=== PATIENT | female | born 1975 | race African-American/Black ===

== ENCOUNTER 2016-04-17 01:49 | Emergency (ER) | payer MEDICAID ==
[2016-04-17] MEDS ORDERED: ASPIRIN 81 MG TABLET, CHEWABLE PO ONE (04:20)
--- NOTE | 2016-04-17 04:22 | ER Document Report ---
ED General - General Chief Complaint: Headache Stated Complaint: HEADACHE Time seen by provider: 04:20 Notes: Patient is a 40-year-old female that comes emergency department with 2 complaints. She states that her first complaint was a headache which felt like a stabbing behind her left eye, however she states that after she waited and then got to the room her headache resolved. She states her other complaint is that she feels a squeezing pain all the way from her throat down into the top of her stomach which started at about 7 PM after she had finished dinner. She denies nausea or vomiting, she states she took one 81 mg baby aspirin prior to arrival and this did not help, she denies radiation to her back, she denies any shortness of breath. Past medical history of hypertension and "prediabetes", denies any cardiovascular history, denies family history of cardiovascular history. She denies smoking. TRAVEL OUTSIDE OF THE [place] IN LAST 30 DAYS: No - Related Data Allergies/Adverse Reactions: No Known Drug Allergies Allergy (Unknown, Verified 09/19/12 14:11) Past Medical History - General Information source: Patient - Social History Smoking Status: Never Smoker Chew tobacco use (# tins/day): No Frequency of alcohol use: None Drug Abuse: None Lives with: Family Family History: Reviewed & Not Pertinent Patient has suicidal ideation: No Patient has homicidal ideation: No - Past Medical History Cardiac Medical History: Reports: Hx Hypertension Denies: Hx Coronary Artery Disease, Hx Heart Attack, Hx Heart Murmur Pulmonary Medical History: Denies: Hx Asthma, Hx Bronchitis, Hx COPD, Hx Pneumonia Neurological Medical History: Denies: Hx Cerebrovascular Accident, Hx Seizures Renal/ Medical History: Reports: Hx Kidney Stones. Denies: Hx Peritoneal Dialysis GI Medical History: Reports: Hx Gastroesophageal Reflux Disease. Denies: Hx Hiatal Hernia, Hx Ulcer Musculoskeltal Medical History: Denies Hx Arthritis Psychiatric Medical History: Comment Only: Hx Anxiety - SOMETIMES Surgical Hx: Negative - Immunizations Hx Diphtheria, Pertussis, Tetanus Vaccination: Yes - 2012 Review of Systems - Review of Systems Constitutional: No symptoms reported EENT: No symptoms reported Cardiovascular: See HPI Respiratory: No symptoms reported Gastrointestinal: See HPI Genitourinary: No symptoms reported Female Genitourinary: No symptoms reported Musculoskeletal: No symptoms reported Skin: No symptoms reported Hematologic/Lymphatic: No symptoms reported Neurological/Psychological: See HPI Physical Exam - Vital signs Vitals: Temp Pulse Resp BP Pulse Ox 97.5 F 81 18 139/80 H 99 04/17/16 01:54 04/17/16 01:54 04/17/16 01:54 04/17/16 01:54 04/17/16 01:54 Interpretation: Normal - General General appearance: Appears well, Alert In distress: None - HEENT Head: Normocephalic, Atraumatic Eyes: Normal Conjunctiva: Normal Eyelashes: Normal Pupils: PERRL Mucous membranes: Normal Pharynx: Normal Neck: Normal - Respiratory Respiratory status: No respiratory distress Chest status: Nontender Breath sounds: Normal Chest palpation: Normal - Cardiovascular Rhythm: Regular Heart sounds: Normal auscultation Murmur: No - Abdominal Inspection: Normal Distension: No distension Bowel sounds: Normal Tenderness: Tender - Very mild epigastric tenderness, otherwise very soft benign abdomen Organomegaly: No organomegaly - Back Back: Normal, Nontender - Extremities General upper extremity: Normal inspection, Nontender, Normal color, Normal ROM , Normal temperature General lower extremity: Normal inspection, Nontender, Normal color, Normal ROM , Normal temperature, Normal weight bearing. No: Brock's sign - Neurological Neuro grossly intact: Yes Cognition: Normal Orientation: AAOx4 [place] Coma Scale Eye Opening: Spontaneous [place] Coma Scale Verbal: Oriented [place] Coma Scale Motor: Obeys Commands [place] Coma Scale Total: 15 Speech: Normal Motor strength normal: LUE, RUE, LLE, RLE Sensory: Normal - Psychological Associated symptoms: Normal affect, Normal mood - Skin Skin Temperature: Warm Skin Moisture: Dry Skin Color: Normal Course - Re-evaluation Re-evalutation: Patient well appearing on exam, states she is uncomfortable and points to the discomfort all the way from her throat down to her epigastric area, very mild epigastric tenderness on examination. Patient appears continually uncomfortable on reexamination after aspirin per chest pain protocol, chest x- ray unremarkable, EKG unremarkable, troponins negative despite being 8 hours after symptom onset. Mild leukocytosis, nonspecific with unremarkable examination. Patient given GI cocktail, after this patient was reevaluated and patient states she feels great, symptoms completely resolved. Based on workup, symptoms , patient will be placed on Prilosec, advised treatment for this at home, primary care follow-up, and return precautions were discussed in detail. Patient states understanding and agreement. - Vital Signs Vital signs: Temp Pulse Resp BP Pulse Ox 97.5 F 59 L 18 127/79 H 98 04/17/16 01:55 04/17/16 06:40 04/17/16 01:55 04/17/16 06:40 04/17/16 06:40 - Laboratory Result Diagrams: 04/17/16 04:45 04/17/16 04:45 Laboratory results interpreted by me: 04/17/16 04:45 WBC 12.7 H Hgb 10.7 L Hct 34.1 L MCV 75 L MCH 23.5 L MCHC 31.4 L RDW 15.6 H Absolute Neutrophils 8.7 H Discharge - Discharge Clinical Impression: Chest pain Qualifiers: Chest pain type: unspecified Qualified Code(s): R07.9 - Chest pain, unspecified Abdominal pain Qualifiers: Abdominal location: unspecified location Qualified Code(s): R10.9 - Unspecified abdominal pain Condition: Stable Disposition: HOME, SELF-CARE Additional Instructions: Your examination, evaluation, and workup is most consistent with a gastrointestinal source of your symptoms. Take medications as prescribed, take Tums or Rolaids in addition if needed, avoid caffeine, smoking, alcohol, NSAIDs such as ibuprofen, Aleve, aspirin. Follow-up with primary care for additional management. Return to emergency department for any concerning or worsening symptoms including vomiting, black stools, severe abdominal pain, or any other concerning symptoms. Prescriptions: Omeprazole 40 mg PO DAILY #30 capsule.dr Forms: Return to Work Referrals: ERLIN NELSON MD [Primary Care Provider] - Follow up in 3-5 days
[2016-04-17 04:54] LABS: ABSOLUTE BASOPHILS # (AUTO) 0.1 10^3/uL (0.0-0.2); ABSOLUTE EOSINOPHILS # (AUTO) 0.4 10^3/uL (0.0-0.6); ABSOLUTE LYMPHOCYTES (AUTO) 2.8 10^3/uL (0.5-4.7); ABSOLUTE MONOCYTES (AUTO) 0.6 10^3/uL (0.1-1.4); ABSOLUTE NEUT (AUTO) 8.7 10^3/uL (1.7-8.2); BASOPHILS % (AUTO) 0.6 % (0-2); EOSINOPHILS % (AUTO) 3.3 % (0-6); HEMATOCRIT 34.1 % (36.0-47.0); HEMOGLOBIN 10.7 g/dL (12.0-15.5); LYMPHOCYTES % (AUTO) 22.3 % (13-45); MEAN CORPUSCULAR HEMOGLOBIN 23.5 pg (27.0-33.4); MEAN CORPUSCULAR HGB CONC 31.4 g/dL (32.0-36.0); MEAN CORPUSCULAR VOLUME 75 fl (80-97); RED BLOOD COUNT 4.56 10^6/uL (3.72-5.28); RED CELL DISTRIBUTION WIDTH 15.6 % (11.5-14.0); SEGMENTED NEUTROPHILS % (AUTO) 68.8 % (42-78); WHITE BLOOD COUNT 12.7 10^3/uL (4.0-10.5)
[2016-04-17 05:21] LABS: ALANINE AMINOTRANSFERASE 27 U/L (9-52); ALBUMIN 3.7 g/dL (3.5-5.0); ALKALINE PHOSPHATASE 75 U/L (38-126); ANION GAP 12 (5-19); ASPARTATE AMINO TRANSFERASE 19 U/L (14-36); BILIRUBIN,TOTAL 0.3 mg/dL (0.2-1.3); BLOOD UREA NITROGEN 17 mg/dL (7-20); CALCIUM 9.4 mg/dL (8.4-10.2); CARBON DIOXIDE 25 mmol/L (22-30); CHLORIDE 101 mmol/L (98-107); CREATINE KINASE 98 U/L (30-135); CREATININE RESULT 0.81 mg/dL (0.52-1.25); GLUCOSE 101 mg/dL (75-110); POTASSIUM 3.9 mmol/L (3.6-5.0); SODIUM 137.6 mmol/L (137-145); TOTAL PROTEIN 6.5 g/dL (6.3-8.2)
[2016-04-17 05:23] LABS: CREATINE KINASE MB 0.23 ng/mL (<4.55)
[2016-04-17 05:24] LABS: TROPONIN I < 0.012 ng/mL
[2016-04-17] MEDS ORDERED: METOCLOPRAMIDE HCL ORAL SOLN 10 MG/10 ML UDCUP PO ONE (05:37)
[2016-04-17] MEDS ORDERED: LIDOCAINE 2% VISCOUS SOLN 20 ML UDCUP PO ONE (05:37)
[2016-04-17] MEDS ORDERED: MAG HYDROX/AL HYDROX/SIMETH SUSP 30 ML UDCUP PO ONE (05:37)
[2016-04-17 06:55] VITALS: BP 127/79
--- NOTE | 2016-04-17 20:04 | EKG REPORT ---
SEVERITY:- NORMAL ECG - SINUS RHYTHM : Confirmed by: Timmy Jimenez 17-Apr-2016 20:03:28
== END 2016-04-17 07:21 | disposition home or self-care (01) ==
LOC: ER 01:49
DX: R07.9 Chest pain, unspecified (principal); K21.9 Gastro-esophageal reflux disease without esophagitis; R10.10 Upper abdominal pain, unspecified; R10.816 Epigastric abdominal tenderness; I10 Essential (primary) hypertension
CPT/HCPCS: 93005; 99285; 36415; 82553; 82550; 84703; 85025; 80053; 84484; 71010; 93010; J3490 ×3

== ENCOUNTER 2016-09-01 01:16 | Emergency (ER) | payer MEDICAID ==
--- NOTE | 2016-09-01 02:46 | ER Document Report ---
ED General - General Chief Complaint: Ankle Pain Stated Complaint: ANKLE PAIN Time Seen by Provider: 09/01/16 01:57 Mode of Arrival: Ambulatory Information source: Patient Notes: 41-year-old female presents with complaints of ankle pain of 3 week duration. Patient notes she twisted it has been able to ambulate improved over the past couple weeks but worsening todayl patient notes pain is worse in the ankle itself TRAVEL OUTSIDE OF THE [place] IN LAST 30 DAYS: No - HPI Onset: Other Onset/Duration: Persistent Quality of pain: Achy Severity: Mild Pain Level: 1 Associated symptoms: Body/muscle aches Exacerbated by: Movement, Walking Relieved by: Denies Similar symptoms previously: No Recently seen / treated by doctor: No - Related Data Allergies/Adverse Reactions: No Known Drug Allergies Allergy (Unknown, Verified 09/01/16 01:22) Home Medications: Current Home Medications Metformin HCl 1 tab PO QHS 09/01/16 [History] Metformin HCl [Glucophage] 1 tab PO QAM 09/01/16 [History] Triamterene/Hydrochlorothiazid [Triamterene-Hctz 37.5-25 mg Cp] 1 each PO QAM [History] Past Medical History - Social History Smoking Status: Current Every Day Smoker Cigarette use (# per day): Yes Chew tobacco use (# tins/day): No Smoking Education Provided: No Frequency of alcohol use: None Drug Abuse: None Family History: Reviewed & Not Pertinent - Past Medical History Cardiac Medical History: Reports: Hx Hypertension Denies: Hx Coronary Artery Disease, Hx Heart Attack, Hx Heart Murmur Pulmonary Medical History: Denies: Hx Asthma, Hx Bronchitis, Hx COPD, Hx Pneumonia Neurological Medical History: Denies: Hx Cerebrovascular Accident, Hx Seizures Renal/ Medical History: Reports: Hx Kidney Stones. Denies: Hx Peritoneal Dialysis GI Medical History: Reports: Hx Gastroesophageal Reflux Disease. Denies: Hx Hiatal Hernia, Hx Ulcer Musculoskeltal Medical History: Denies Hx Arthritis Psychiatric Medical History: Comment Only: Hx Anxiety - SOMETIMES - Immunizations Hx Diphtheria, Pertussis, Tetanus Vaccination: Yes - 2012 Review of Systems - Review of Systems Notes: REVIEW OF SYSTEMS: CONSTITUTIONAL : Denies fever, chills, or sweats. Denies recent illness. EENT: Denies eye, ear, throat, or mouth pain or symptoms. Denies nasal or sinus congestion or discharge. Denies throat, tongue, or mouth swelling or difficulty swallowing. CARDIOVASCULAR: Denies chest pain. Denies palpitations or racing or irregular heart beat. Denies ankle edema. RESPIRATORY: Denies cough, cold, or chest congestion. Denies shortness of breath, difficulty breathing, or wheezing. GASTROINTESTINAL: Denies abdominal pain or distention. Denies nausea, vomiting , or diarrhea. Denies blood in vomitus, stools, or per rectum. Denies black, tarry stools. Denies constipation. GENITOURINARY: Denies difficulty urinating, painful urination, burning, frequency, blood in urine, or discharge. FEMALE GENITOURINARY: Denies vaginal bleeding, heavy or abnormal periods, irregular periods. Denies vaginal discharge or odor. MUSCULOSKELETAL: admits to [facility] pain SKIN: Denies rash, lesions or sores. HEMATOLOGIC : Denies easy bruising or bleeding. LYMPHATIC: Denies swollen, enlarged glands. NEUROLOGICAL: Denies confusion or altered mental status. Denies passing out or loss of consciousness. Denies dizziness or lightheadedness. Denies headache. Denies weakness or paralysis or loss of use of either side. Denies problems with gait or speech. Denies sensory loss, numbness, or tingling. Denies seizures. PSYCHIATRIC: Denies anxiety or stress. Denies depression, suicidal ideation, or homicidal ideation. ALL OTHER SYSTEMS REVIEWED AND NEGATIVE. PHYSICAL EXAMINATION: GENERAL: Well-appearing, well-nourished and in no acute distress. HEAD: Atraumatic, normocephalic. EYES: Pupils equal round and reactive to light, extraocular movements intact, conjunctiva are normal. ENT: Nares patent, oropharynx clear without exudates. Moist mucous membranes. NECK: Normal range of motion, supple without lymphadenopathy LUNGS: Breath sounds clear to auscultation bilaterally and equal. No wheezes rales or rhonchi. HEART: Regular rate and rhythm without murmurs ABDOMEN: Soft, nontender, nondistended abdomen. No guarding, no rebound. No masses appreciated. Female : deferred Musculoskeletal: tenderness worst around the left lateral ankle , no bony tenderness NEUROLOGICAL: Cranial nerves grossly intact. Normal speech, normal gait. Normal sensory, motor exams PSYCH: Normal mood, normal affect. SKIN: Warm, Dry, normal turgor, no rashes or lesions noted. Dictation was performed using [employer] voice recognition software Physical Exam - Vital signs Vitals: Temp Pulse Resp BP Pulse Ox 97.6 F 63 18 183/99 H 98 09/01/16 01:23 09/01/16 01:23 09/01/16 01:23 09/01/16 01:23 09/01/16 01:23 Course - Re-evaluation Re-evalutation: 09/01/16 02:48 Patient appears to have ligamentous injury, is otherwise well-appearing no distress. Dann wrap will be placed patient will be given anti-inflammatories and will be discharged home with follow-up with orthopedics if symptoms worsen After performing a Medical Screening Examination, I estimate there is LOW risk for INTRACRANIAL HEMORRHAGE, UNSTABLE SPINE FRACTURE, CENTRAL CORD SYNDROME, CAUDA EQUINA, THORACIC AORTIC DISSECTION, PNEUMOTHORAX, PERFORATED BOWEL, RUPTURED ABDOMINAL AORTIC ANEURYSM, ACUTE TENDON RUPTURE, COMPARTMENT SYNDROME, or OPEN FRACTURE, thus I consider the discharge disposition reasonable. Also, there is no evidence or peritonitis, sepsis, or toxicity. I have reevaluated this patient multiple times and no significant life threatening changes are noted. The patient and I have discussed the diagnosis and risks, and we agree with discharging home to follow-up with their primary doctor with the understanding that symptoms and presentations can change. We also discussed returning to the Emergency Department immediately if new or worsening symptoms occur. We have discussed the symptoms which are most concerning (e.g., bloody stool, fever, changing or worsening pain, vomiting) that necessitate immediate return. - Vital Signs Vital signs: Temp Pulse Resp BP Pulse Ox 97.6 F 63 18 183/99 H 98 09/01/16 01:24 09/01/16 01:24 09/01/16 01:24 09/01/16 01:24 09/01/16 01:24 - Diagnostic Test Radiology reviewed: Image reviewed, Reports reviewed - No acute abnormality Discharge - Discharge Clinical Impression: Strain of ligament Ankle injury Qualifiers: Encounter type: initial encounter Laterality: left Qualified Code(s): S99.912A - Unspecified injury of left ankle, initial encounter Hypertension Qualifiers: Hypertension type: essential hypertension Qualified Code(s): I10 - Essential ( primary) hypertension Condition: Stable Disposition: HOME, SELF-CARE Instructions: Sprained Ankle ([facility]) Prescriptions: Naproxen 500 mg PO BID #20 tablet Forms: Elevated Blood Pressure Referrals: REGIS MANUEL MD [ACTIVE STAFF] - Follow up in 3-5 days
[2016-09-01] MEDS ORDERED: NAPROXEN 250 MG TABLET PO ONE (02:50)
--- NOTE | 2016-09-01 03:08 | RADIOLOGY REPORT (SQ) ---
EXAM DESCRIPTION: ANKLE LEFT COMPLETE COMPLETED DATE/TIME: 09/01/2016 2:32 am REASON FOR STUDY: ankle injury COMPARISON: None. NUMBER OF VIEWS: Three views. TECHNIQUE: AP, lateral, and oblique radiographic images acquired of the left ankle. LIMITATIONS: None. FINDINGS: MINERALIZATION: Normal. BONES: No acute fracture or dislocation. No worrisome bone lesions. Small plantar faucial enthesoph yte. Moderate Achilles tendinous enthesophyte. JOINTS: No effusions. SOFT TISSUES: No soft tissue swelling. No foreign body. OTHER: No other significant finding. IMPRESSION: NO RADIOGRAPHIC EVIDENCE OF ACUTE INJURY. TECHNICAL DOCUMENTATION: JOB ID: [id number] [employer]- All Rights Reserved
[2016-09-01 03:09] VITALS: BP 146/88
== END 2016-09-01 03:09 | disposition home or self-care (01) ==
LOC: ER 01:16
DX: S96.912A Strain of unspecified muscle and tendon at ankle and foot level, left foot, initial encounter (principal); S99.912A Unspecified injury of left ankle, initial encounter; M25.579 Pain in unspecified ankle and joints of unspecified foot; F17.210 Nicotine dependence, cigarettes, uncomplicated; I10 Essential (primary) hypertension; X58.XXXA Exposure to other specified factors, initial encounter
CPT/HCPCS: 99283; 73610; J3490

== ENCOUNTER 2017-08-04 18:35 | Emergency (ER) | payer SELFPAY ==
[2017-08-04 18:41] VITALS: BP 143/100
--- NOTE | 2017-08-04 18:51 | ER Document Report ---
HPI - HPI Patient complains to provider of: Right MTP joint pain Onset: This morning Onset/Duration: Gradual Quality of pain: Throbbing Pain Level: 5 Context: 42-year-old female complaining of increasingly worse right great MTP joint pain today. She thought maybe it was the shoes she was wearing at work for the other foot does not hurt at all. No history of gout. She has a history of hypertension and diabetes she takes Metformin. Associated Symptoms: None Exacerbated by: Walking Relieved by: Denies Similar symptoms previously: No Recently seen / treated by doctor: No - ROS ROS below otherwise negative: Yes Systems Reviewed and Negative: Yes All other systems reviewed and negative Past Medical History - General Information source: Patient - Social History Smoking Status: Unknown if Ever Smoked Frequency of alcohol use: None Drug Abuse: None Lives with: Family Family History: Reviewed & Not Pertinent - Past Medical History Cardiac Medical History: Reports: Hx Hypertension Renal/ Medical History: Reports: Hx Kidney Stones GI Medical History: Reports: Hx Gastroesophageal Reflux Disease Psychiatric Medical History: Comment Only: Hx Anxiety - SOMETIMES Surgical Hx: Negative - Immunizations Hx Diphtheria, Pertussis, Tetanus Vaccination: Yes - 2013 Vertical Provider Document - CONSTITUTIONAL Agree With Documented VS: Yes Exam Limitations: No Limitations - INFECTION CONTROL TRAVEL OUTSIDE OF THE [place] IN LAST 30 DAYS: No - HEENT HEENT: Normocephalic - NECK Neck: Supple - MUSCULOSKELETAL/EXTREMETIES Musculoskeletal/Extremeties: Tender - warm no swellng at the 1st right MTP jont - NEURO Level of Consciousness: Awake Motor/Sensory: No Motor Deficit, No Sensory Deficit Notes: 2+ DP - DERM Integumentary: No Rash Course - Re-evaluation Re-evalutation: 08/04/17 19:30 X-ray is negative per rad. We will give patient crunches. 08/04/17 19:32 Her daughter is driving home and she wants something stronger for pain so I gave her to hydrocodone in the emergency department 08/04/17 19:34 - Vital Signs Vital signs: Temp Pulse Resp BP Pulse Ox 98.5 F 69 20 143/100 H 98 08/04/17 18:40 08/04/17 18:40 08/04/17 18:40 08/04/17 18:40 08/04/17 18:40 Discharge - Discharge Clinical Impression: Presumed gout Condition: Good Disposition: HOME, SELF-CARE Instructions: Gout ([facility]), Ibuprofen (General) ([facility]), Acetaminophen Additional Instructions: See family practice doctor Take Motrin consistently with food Elevate and use crutches this weekend Return to the emergency room if any worsening of the symptoms Prescriptions: Ibuprofen [Motrin 800 mg Tablet] 800 mg PO Q8HP PRN #20 tablet PRN Reason: Forms: Return to Work
[2017-08-04] MEDS ORDERED: IBUPROFEN 800 MG TABLET PO ONE (18:58)
--- NOTE | 2017-08-04 19:19 | RADIOLOGY REPORT (SQ) ---
EXAM DESCRIPTION: TOE RIGHT COMPLETED DATE/TIME: 08/04/2017 7:10 pm REASON FOR STUDY: pain right 1st MTP COMPARISON: None. NUMBER OF VIEWS: Three views. TECHNIQUE: AP, lateral, and oblique images acquired of the right first toe. LIMITATIONS: None. FINDINGS: MINERALIZATION: Normal. BONES: No acute fracture or dislocation. No worrisome bone lesions. No significant osteophytes. JOINTS: No erosions. No jer-articular osteopenia. No chondrocalcinosis. SOFT TISSUES: No swelling. No calcifications. OTHER: No other significant finding. IMPRESSION: NEGATIVE STUDY OF THE RIGHT TOE. NO EXPLANATION FOR PAIN. COMMENT: SITE OF TRAUMA/COMPLAINT MARKED/STAMP COMPLETED: Yes TECHNICAL DOCUMENTATION: JOB ID: [id number] [employer]- All Rights Reserved Reading location - IP/workstation name: [email or web address]
[2017-08-04] MEDS ORDERED: ACETAMINOPHEN 325 MG TABLET PO ONE (19:31)
[2017-08-04] MEDS ORDERED: HYDROCODONE/ACETAMINOPHEN 5-325 MG TABLET PO ONE (19:32)
== END 2017-08-04 19:55 | disposition home or self-care (01) ==
LOC: ER 18:35
DX: M10.9 Gout, unspecified (principal); M25.571 Pain in right ankle and joints of right foot; I10 Essential (primary) hypertension; Z87.442 Personal history of urinary calculi
CPT/HCPCS: 99283

== ENCOUNTER 2017-09-07 12:46 | Emergency (ER) | payer SELFPAY ==
--- NOTE | 2017-09-07 13:08 | ER Document Report ---
ED Medical Screen (RME) - General Chief Complaint: Chest Pain Stated Complaint: CHEST PAIN, SHORTNESS OF BREATH Time Seen by Provider: 09/07/17 13:05 Mode of Arrival: Medic Information source: Patient TRAVEL OUTSIDE OF THE [place] IN LAST 30 DAYS: No - HPI Patient complains to provider of: cp Onset: Just prior to arrival - pt had sscp that started earlier today. Given ASA already by EMS - Related Data Allergies/Adverse Reactions: No Known Drug Allergies Allergy (Unknown, Verified 09/07/17 12:49) Past Medical History - Social History Chew tobacco use (# tins/day): No Frequency of alcohol use: None Drug Abuse: None - Past Medical History Cardiac Medical History: Reports: Hx Hypertension Denies: Hx Coronary Artery Disease, Hx Heart Attack, Hx Heart Murmur Pulmonary Medical History: Denies: Hx Asthma, Hx Bronchitis, Hx COPD, Hx Pneumonia Neurological Medical History: Denies: Hx Cerebrovascular Accident, Hx Seizures Renal/ Medical History: Reports: Hx Kidney Stones. Denies: Hx Peritoneal Dialysis GI Medical History: Reports: Hx Gastroesophageal Reflux Disease. Denies: Hx Hiatal Hernia, Hx Ulcer Musculoskeltal Medical History: Denies Hx Arthritis Psychiatric Medical History: Comment Only: Hx Anxiety - SOMETIMES Past Surgical History: Reports: Hx Appendectomy, Hx Section - Immunizations Hx Diphtheria, Pertussis, Tetanus Vaccination: Yes - 2012 Physical Exam - Vital signs Vitals: Temp Pulse Resp BP Pulse Ox 98.2 F 65 16 145/94 H 99 09/07/17 12:58 09/07/17 12:58 09/07/17 12:58 09/07/17 12:58 09/07/17 12:58 Course - Vital Signs Vital signs: Temp Pulse Resp BP Pulse Ox 98.2 F 65 16 145/94 H 99 09/07/17 12:58 09/07/17 12:58 09/07/17 12:58 09/07/17 12:58 09/07/17 12:58
[2017-09-07 13:52] LABS: ABSOLUTE BASOPHILS # (AUTO) 0.1 10^3/uL (0.0-0.2); ABSOLUTE EOSINOPHILS # (AUTO) 0.3 10^3/uL (0.0-0.6); ABSOLUTE LYMPHOCYTES (AUTO) 2.1 10^3/uL (0.5-4.7); ABSOLUTE MONOCYTES (AUTO) 0.5 10^3/uL (0.1-1.4); ABSOLUTE NEUT (AUTO) 6.3 10^3/uL (1.7-8.2); BASOPHILS % (AUTO) 0.7 % (0-2); EOSINOPHILS % (AUTO) 2.9 % (0-6); HEMATOCRIT 42.2 % (36.0-47.0); HEMOGLOBIN 13.9 g/dL (12.0-15.5); LYMPHOCYTES % (AUTO) 23.1 % (13-45); MEAN CORPUSCULAR HEMOGLOBIN 26.7 pg (27.0-33.4); MEAN CORPUSCULAR HGB CONC 32.9 g/dL (32.0-36.0); MEAN CORPUSCULAR VOLUME 81 fl (80-97); MONOCYTES % (AUTO) 5.4 % (3-13); PLATELET COUNT 279 10^3/uL (150-450); RED CELL DISTRIBUTION WIDTH 14.5 % (11.5-14.0); SEGMENTED NEUTROPHILS % (AUTO) 67.9 % (42-78); TOTAL CELLS COUNTED % (AUTO) 100 %; WHITE BLOOD COUNT 9.3 10^3/uL (4.0-10.5)
--- NOTE | 2017-09-07 14:08 | RADIOLOGY REPORT (SQ) ---
EXAM DESCRIPTION: CHEST 2 VIEWS COMPLETED DATE/TIME: 09/07/2017 1:59 pm REASON FOR STUDY: cp COMPARISON: None. EXAM PARAMETERS: NUMBER OF VIEWS: two views TECHNIQUE: Digital Frontal and Lateral radiographic views of the chest acquired. RADIATION DOSE: NA LIMITATIONS: none FINDINGS: LUNGS AND PLEURA: No opacities, masses or pneumothorax. No pleural effusion. MEDIASTINUM AND HILAR STRUCTURES: No masses or contour abnormalities. HEART AND VASCULAR STRUCTURES: Heart normal size. No evidence for failure. BONES: No acute findings. HARDWARE: None in the chest. OTHER: No other significant finding. IMPRESSION: NO ACUTE RADIOGRAPHIC FINDING IN THE CHEST. TECHNICAL DOCUMENTATION: JOB ID: [id number] [employer]- All Rights Reserved Reading location - IP/workstation name: [email or web address]
[2017-09-07 14:55] LABS: ALANINE AMINOTRANSFERASE 23 U/L (9-52); ALBUMIN 4.1 g/dL (3.5-5.0); ALKALINE PHOSPHATASE 61 U/L (38-126); ANION GAP 13 (5-19); ASPARTATE AMINO TRANSFERASE 31 U/L (14-36); BILIRUBIN,DIRECT 0.3 mg/dL (0.0-0.4); BILIRUBIN,TOTAL 0.5 mg/dL (0.2-1.3); BLOOD UREA NITROGEN 19 mg/dL (7-20); CALCIUM 9.2 mg/dL (8.4-10.2); CARBON DIOXIDE 23 mmol/L (22-30); CHLORIDE 106 mmol/L (98-107); CREATINE KINASE 115 U/L (30-135); GLUCOSE 90 mg/dL (75-110); SODIUM 141.6 mmol/L (137-145); TOTAL PROTEIN 7.5 g/dL (6.3-8.2)
--- NOTE | 2017-09-07 14:58 | ER Document Report ---
ED General - General Chief Complaint: Chest Pain Stated Complaint: CHEST PAIN, SHORTNESS OF BREATH Time Seen by Provider: 09/07/17 13:05 Mode of Arrival: Medic TRAVEL OUTSIDE OF THE [place] IN LAST 30 DAYS: No - HPI Notes: Patient is a 42-year-old female with a history of hypertension and "prediabetic " on metformin who presents to the ED complaining of right sternal chest pain that occurred while she was at work 3 hours ago. 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 Patient states that she did have some jaw pain at that time and nausea without any vomiting. Patient did not have any diaphoresis. Patient states her symptoms lasted for 30 minutes and then resolved. Patient states that she currently is asymptomatic and is feeling a lot better. Patient did get aspirin via EMS. Patient states that she had been eating and drinking without any difficulties. She is urinating normally. Denies any other significant past medical history including cardiopulmonary medical history. Denies any drug allergies. Denies any smoking, IV drug use, cancer history, recent surgery/ trauma, previous DVT/PE, hormone use, prolonged immobilization/distance travel. Denies any headache, fever, neck pain, URI, sore throat, palpitations, syncope , cough, shortness of breath, wheeze, dyspnea, abdominal pain, nausea/vomiting/ diarrhea, urinary retention, dysuria, hematuria, back pain, or rash. - Related Data Allergies/Adverse Reactions: No Known Drug Allergies Allergy (Unknown, Verified 09/07/17 12:49) Past Medical History - General Information source: Patient - Social History Smoking Status: Never Smoker Chew tobacco use (# tins/day): No Frequency of alcohol use: None Drug Abuse: None Family History: Reviewed & Not Pertinent Patient has suicidal ideation: No Patient has homicidal ideation: No - Past Medical History Cardiac Medical History: Reports: Hx Hypertension Denies: Hx Coronary Artery Disease, Hx Heart Attack, Hx Heart Murmur Pulmonary Medical History: Denies: Hx Asthma, Hx Bronchitis, Hx COPD, Hx Pneumonia Neurological Medical History: Denies: Hx Cerebrovascular Accident, Hx Seizures Renal/ Medical History: Reports: Hx Kidney Stones. Denies: Hx Peritoneal Dialysis GI Medical History: Reports: Hx Gastroesophageal Reflux Disease. Denies: Hx Hiatal Hernia, Hx Ulcer Musculoskeletal Medical History: Denies Hx Arthritis Psychiatric Medical History: Comment Only: Hx Anxiety - SOMETIMES Past Surgical History: Reports: Hx Appendectomy, Hx Section - Immunizations Hx Diphtheria, Pertussis, Tetanus Vaccination: Yes - 2012 Review of Systems - Review of Systems -: Yes All other systems reviewed and negative Physical Exam - Vital signs Vitals: Temp Pulse Resp BP Pulse Ox 98.2 F 65 16 145/94 H 99 09/07/17 12:58 09/07/17 12:58 09/07/17 12:58 09/07/17 12:58 09/07/17 12:58 - Notes Notes: PHYSICAL EXAMINATION: GENERAL: Well-appearing, well-nourished and in no acute distress. HEAD: Atraumatic, normocephalic. EYES: Pupils equal round and reactive to light, extraocular movements intact, sclera anicteric, conjunctiva are normal. ENT: Nares patent and without discharge. oropharynx clear without exudates. No tonsilar hypertrophy or erythema. Moist mucous membranes. NECK: Normal range of motion, supple without lymphadenopathy LUNGS: Breath sounds clear to auscultation bilaterally and equal. No wheezes rales or rhonchi. HEART: Regular rate and rhythm without murmurs, rubs, gallops. ABDOMEN: Soft, nontender, nondistended abdomen. No guarding, no rebound. No masses appreciated. Normal bowel sounds present. No CVA tenderness bilaterally. Musculoskeletal: FROM to passive/active. Strength 5+/5. Brock neg. No asymmetry Extremities: No cyanosis, clubbing, or edema b/l. Peripheral pulses 2+. Capillary refill less than 3 seconds. NEUROLOGICAL: Normal speech, normal gait. PSYCH: Normal mood, normal affect. SKIN: Warm, Dry, normal turgor, no rashes or lesions noted. Course - Re-evaluation Re-evalutation: 09/07/17 19:35 Patient is an afebrile, well-hydrated 42-year-old female who presents to the ED with chest pain, unspecified, since resolved 30 mins after initial onset. Vitals are acceptable without any significant tachycardia, tachypnea, or hypoxia. PE is otherwise unremarkable. Patient is nontoxic-appearing and is tolerating p.o. without any difficulties. Pt is currently asymptomatic and has been since arrival. CBC, CMP, EKG/cardiac enzymes 2, chest x-ray are all unremarkable for any acute pathology. Patient has a heart score of 2, Wells score of 0, and is PERC negative. Patient does not have any chest pain, dyspnea , or shortness of breath. Patient's presentation and symptomatology creates low suspicion for ACS, PE, pneumothorax, pericarditis, dissection, respiratory compromise, severe dehydration, sepsis, meningitis, acute intracranial pathology , or other systemic emergent condition at this time. Patient is aware that this condition can change from initial presentation and she needs to monitor symptoms closely and seek medical attention for any acute changes. Pt is feeling better and would like to go home. Recommend conservative measures for symptoms. Recheck with your PCM in 2-3 days. Consider consult with Cardiology. Return to the ED with any worsening/concerning symptoms otherwise as reviewed in discharge. Patient is in agreement. - Vital Signs Vital signs: Temp Pulse Resp BP Pulse Ox 98.2 F 65 18 134/75 H 99 09/07/17 12:58 09/07/17 12:58 09/07/17 18:45 09/07/17 18:45 09/07/17 18:45 - Laboratory Result Diagrams: 09/07/17 13:34 09/07/17 14:26 Laboratory results interpreted by me: 09/07/17 13:34 MCH 26.7 L RDW 14.5 H Discharge - Discharge Clinical Impression: Atypical chest pain Condition: Stable Disposition: HOME, SELF-CARE Instructions: Chest Pain of Unclear Cause ([facility]) Additional Instructions: Maintain adequate fluid and food intake Take home medications as directed Low sodium/fat diet Exercise regularly Weight control Monitor blood pressure daily and keep a log Monitor symptoms for any acute changes Recheck with your PCM in 3-5 days Consider a follow-up with cardiology Return to the ED with any worsening symptoms and/or development of fever, headache, chest pain, palpitations, syncope, shortness of breath, trouble breathing, abdominal pain, n/v/d, blood in stool/urine, loss of control of bowel /bladder, urinary retention, muscle weakness/paralysis, numbness/tingling, or other worsening symptoms that are concerning to you. Forms: Elevated Blood Pressure Referrals: ABDULAZIZ COOK MD [ACTIVE STAFF] - Follow up in 3-5 days
[2017-09-07 15:07] LABS: CREATINE KINASE MB 0.96 ng/mL (<4.55)
[2017-09-07 15:09] LABS: TROPONIN I < 0.012 ng/mL
[2017-09-07 20:08] VITALS: BP 130/81
--- NOTE | 2017-09-07 22:29 | EKG REPORT ---
SEVERITY:- NORMAL ECG - SINUS RHYTHM : Confirmed by: Timmy Jimenez 07-Sep-2017 22:28:34
== END 2017-09-07 20:08 | disposition home or self-care (01) ==
LOC: ER 12:46
DX: R07.89 Other chest pain (principal); R61 Generalized hyperhidrosis; R11.0 Nausea; I10 Essential (primary) hypertension; R73.03 Prediabetes; Z79.84 Long term (current) use of oral hypoglycemic drugs
CPT/HCPCS: 36415; 71046; 80053; 82550; 82553; 84484; 85025; 93005; 93010; 99285

== ENCOUNTER 2018-08-14 23:48 | Inpatient (IN) | payer SELFPAY ==
[2018-08-15] MEDS ORDERED: ACETAMINOPHEN 325 MG TABLET PO ONE (02:22)
[2018-08-15] MEDS ORDERED: METOPROLOL SUCCINATE 50 MG TAB.SR.24H PO ONE (02:23)
--- NOTE | 2018-08-15 02:25 | ER Document Report ---
ED General - General Chief Complaint: Headache Stated Complaint: NUMBNESS IN HAND AND FOOT Time Seen by Provider: 08/15/18 02:05 Mode of Arrival: Ambulatory Information source: Patient TRAVEL OUTSIDE OF THE [place] IN LAST 30 DAYS: No - HPI Notes: Patient is a 43-year-old female history of hypertension and glk-obwzgus-sjobsnkge diabetes presents the emergency department with report that she ran out of her metoprolol XR 100 mg daily and triamterene 37.5 mg daily approximately 2 weeks ago and presents with a one-week history of headache generalized left slightly greater than right. The patient reports some nausea onset yesterday but denies any vomiting. She describes some left eye blurred vision intermittently for the last 2 days, now resolved. She also describes left arm and left leg numbness intermittently for the last 2 days. She presented to the emergency department with numbness but now on my questioning denies it. The patient reports no focal weakness or aphasia. She denies any head injury. Headache is not the worst of her life. She does describe a previous history of migraines, with last migraine 10 years ago, but she had no associated numbness, paresthesia or other neurologic complaints with the migraines. - Related Data Allergies/Adverse Reactions: No Known Drug Allergies Allergy (Unknown, Verified 08/14/18 23:53) Past Medical History - General Information source: Patient - Social History Smoking Status: Never Smoker Frequency of alcohol use: None Drug Abuse: None Lives with: Alone Family History: Reviewed & Not Pertinent Patient has suicidal ideation: No Patient has homicidal ideation: No - Past Medical History Cardiac Medical History: Reports: Hx Hypertension Denies: Hx Coronary Artery Disease, Hx Heart Attack, Hx Heart Murmur Pulmonary Medical History: Denies: Hx Asthma, Hx Bronchitis, Hx COPD, Hx Pneumonia Neurological Medical History: Denies: Hx Cerebrovascular Accident, Hx Seizures Endocrine Medical History: Reports: Hx Diabetes Mellitus Type 2 - no insulin Renal/ Medical History: Reports: Hx Kidney Stones. Denies: Hx Peritoneal Dialysis GI Medical History: Reports: Hx Gastroesophageal Reflux Disease. Denies: Hx Hiatal Hernia, Hx Ulcer Musculoskeletal Medical History: Denies Hx Arthritis Psychiatric Medical History: Comment Only: Hx Anxiety - SOMETIMES Past Surgical History: Reports: Hx Appendectomy, Hx Section - Immunizations Hx Diphtheria, Pertussis, Tetanus Vaccination: Yes - 2012 Review of Systems - Review of Systems -: Yes All other systems reviewed and negative Physical Exam - Vital signs Vitals: Temp Pulse Resp BP Pulse Ox 98.3 F 67 16 152/91 H 100 08/15/18 00:16 08/15/18 00:16 08/15/18 00:16 08/15/18 00:16 08/15/18 00:16 - Notes Notes: PHYSICAL EXAMINATION: GENERAL: Well-appearing, well-nourished and in no acute distress. HEAD: Atraumatic, normocephalic. No temporal arterial tenderness. No TMJ joint tenderness. EYES: Pupils equal round and reactive to light, extraocular movements intact, conjunctiva are normal. Anterior chambers are clear and are not shallow. ENT: Nares patent, oropharynx clear without exudates. Moist mucous membranes. NECK: Normal range of motion, supple without lymphadenopathy LUNGS: Breath sounds clear to auscultation bilaterally and equal. No wheezes rales or rhonchi. HEART: Regular rate and rhythm without murmurs ABDOMEN: Soft, nontender, nondistended abdomen. No guarding, no rebound. No masses appreciated. Female : deferred Musculoskeletal: Normal range of motion, no pitting or edema. No cyanosis. NEUROLOGICAL: Cranial nerves grossly intact. Normal speech, normal gait. Normal sensory, motor exams. No cerebellar ataxia. Normal reflexes. Patient now describes her paresthesia resolved in her left upper and lower extremity. PSYCH: Normal mood, normal affect. SKIN: Warm, Dry, normal turgor, no rashes or lesions noted. Course - Re-evaluation Re-evalutation: 08/15/18 04:49 On repeat exam, the patient denied any further paresthesia. Head CT was negative. Blood pressures remained range 140-160 systolic with diastolic 90s to 101. Patient was given her usual dose of metoprolol XR and Maxide. Patient was also given aspirin by mouth. Lab studies showed no evidence for endorgan damage. Family history patient reported her father had a stroke in his late 30s to early 40s. Discussion was undertaken with the patient regarding the concern for possible TIA versus uncontrolled hypertension causing hypertensive encephalopathy. Patient was agreeable to admission for further blood pressure management and MRI and/or carotid Doppler studies. Discussion was undertaken with the hospitalist Dr. Hunter who agreed to admit the patient for further evaluation and care. 08/15/18 04:51 - Vital Signs Vital signs: Temp Pulse Resp BP Pulse Ox 98.3 F 67 17 145/99 H 100 08/15/18 00:16 08/15/18 00:16 08/15/18 02:01 08/15/18 02:00 08/15/18 02:36 - Laboratory Result Diagrams: 08/15/18 01:40 08/15/18 01:40 Laboratory results interpreted by me: 08/15/18 01:40 Hgb 11.4 L Hct 35.6 L MCV 77 L MCH 24.7 L RDW 14.9 H - EKG Interpretation by Fl EKG shows normal: Sinus rhythm Additional EKG results interpreted by me: 08/15/18 02:24 EKG is interpreted by ok showed normal sinus rhythm heart rate of 63. There is no gross evidence for acute ID or ischemia noted. There is no change from previous EKG reviewed from 09/07/2017. Critical Care Note - Critical Care Note Total time excluding time spent on procedures (mins): 32 Discharge - Discharge Clinical Impression: Medical non-compliance, Paresthesia Hypertension Qualifiers: Hypertension type: essential hypertension Qualified Code(s): I10 - Essential (primary) hypertension Condition: Stable Disposition: ADMITTED INPATIENT Admitting Provider: Dale (Hospitalist) Unit Admitted: [facility]
[2018-08-15 02:30] LABS: ABSOLUTE BASOPHILS # (AUTO) 0.1 10^3/uL (0.0-0.2); ABSOLUTE EOSINOPHILS # (AUTO) 0.2 10^3/uL (0.0-0.6); ABSOLUTE LYMPHOCYTES (AUTO) 2.8 10^3/uL (0.5-4.7); ABSOLUTE MONOCYTES (AUTO) 0.5 10^3/uL (0.1-1.4); ABSOLUTE NEUT (AUTO) 6.4 10^3/uL (1.7-8.2); BASOPHILS % (AUTO) 0.7 % (0-2); EOSINOPHILS % (AUTO) 2.2 % (0-6); HEMATOCRIT 35.6 % (36.0-47.0); HEMOGLOBIN 11.4 g/dL (12.0-15.5); LYMPHOCYTES % (AUTO) 27.6 % (13-45); MEAN CORPUSCULAR HEMOGLOBIN 24.7 pg (27.0-33.4); MEAN CORPUSCULAR VOLUME 77 fl (80-97); MONOCYTES % (AUTO) 5.3 % (3-13); PLATELET COUNT 253 10^3/uL (150-450); RED BLOOD COUNT 4.62 10^6/uL (3.72-5.28); RED CELL DISTRIBUTION WIDTH 14.9 % (11.5-14.0); SEGMENTED NEUTROPHILS % (AUTO) 64.2 % (42-78); TOTAL CELLS COUNTED % (AUTO) 100 %
[2018-08-15 02:37] LABS: PROTHROMBIN TIME 13.2 SEC (11.4-15.4)
[2018-08-15 02:41] LABS: ALANINE AMINOTRANSFERASE 27 U/L (9-52); ALKALINE PHOSPHATASE 70 U/L (38-126); ANION GAP 8 (5-19); ASPARTATE AMINO TRANSFERASE 33 U/L (14-36); BILIRUBIN,DIRECT 0.3 mg/dL (0.0-0.4); BILIRUBIN,TOTAL 0.4 mg/dL (0.2-1.3); BLOOD UREA NITROGEN 14 mg/dL (7-20); CALCIUM 9.4 mg/dL (8.4-10.2); CARBON DIOXIDE 28 mmol/L (22-30); CHLORIDE 104 mmol/L (98-107); GLUCOSE 95 mg/dL (75-110); POTASSIUM 3.6 mmol/L (3.6-5.0); TOTAL PROTEIN 7.3 g/dL (6.3-8.2)
--- NOTE | 2018-08-15 02:51 | RADIOLOGY REPORT (SQ) ---
CLINICAL HISTORY: Headache, left sided numbness COMPARISON: None. TECHNIQUE: CT HEAD WITHOUT IV CONTRAST on 08/15/2018 2:21 AM CDT This exam was performed according to our departmental dose-optimization program, which includes automated exposure control, adjustment of the mA and/or kV according to patient size and/or use of iterative reconstruction technique. FINDINGS: There is no acute hemorrhage, mass effect or midline shift. Edwards-white differentiation is preserved. There is no hydrocephalus. There is no significant volume loss for age. The calvarium is intact. Orbits and globes are unremarkable. The paranasal sinuses are clear. Mastoid air cells are clear. IMPRESSION: No acute intracranial findings.
[2018-08-15] MEDS ORDERED: ASPIRIN 325 MG TABLET PO ONE (04:40)
[2018-08-15] MEDS ORDERED: TRIAMTERENE/HYDROCHLOROTHIAZID 75-50 MG TABLET PO ONE (04:50)
[2018-08-15] MEDS ORDERED: TRIAMTERENE/HYDROCHLOROTHIAZIDE 37.5-25 MG TABLET ONE (05:10)
[2018-08-15] MEDS ORDERED: MAGNESIUM HYDROXIDE SUSP 30 ML UDCUP PO PRN (05:20)
[2018-08-15] MEDS ORDERED: DOCUSATE SODIUM 100 MG CAPSULE PO PRN (05:20)
[2018-08-15] MEDS ORDERED: ONDANSETRON HCL INJ/PF 4 MG/2 ML SDV IV PRN (05:20)
[2018-08-15] MEDS ORDERED: TEMAZEPAM 15 MG CAPSULE PO PRN (05:20)
[2018-08-15] MEDS ORDERED: HYDRALAZINE HCL INJ/PF 20 MG/1 ML SDV IV PRN (05:29)
[2018-08-15] MEDS ORDERED: INSULIN REG, HUMAN 100 UNIT/ML 3 ML VIAL (PYX) SUBCUT PRN (05:29)
[2018-08-15] MEDS ORDERED: NALBUPHINE HCL INJ 10 MG/1 ML AMPULE IV PRN (05:29)
[2018-08-15] MEDS ORDERED: ACETAMINOPHEN 325 MG TABLET PO PRN (05:29)
[2018-08-15] MEDS ORDERED: DEXTROSE 40% GEL 15 GM TUBE PO PRN ×2 (05:34)
[2018-08-15] MEDS ORDERED: DEXTROSE 50%-WATER 25 GM/50 ML DISP.SYRIN IV PRN ×2 (05:34)
[2018-08-15] MEDS ORDERED: GLUCAGON,HUMAN RECOMB 1 MG INJ IM PRN (05:34)
--- NOTE | 2018-08-15 06:22 | ADVANCED CARE ---
- Diagnosis (1) Bilateral headaches Diagnosis Current: Yes (2) Numbness and tingling Diagnosis Current: Yes (3) Hypertension Diagnosis Current: Yes (4) Diabetes mellitus type 2 in obese Diagnosis Current: Yes (5) Medical non-compliance Diagnosis Current: Yes Attendance: The patient and myself Resuscitation Status: Full Code Discussion: After brief discussion the patient has determined that she wishes to be full code resuscitation status patient throughout the remainder of her hospital course. Additionally she has named Berry Ryan as her designated surrogate medical decision-maker. Care Planning Goals: 1. Patient will be full CODE STATUS during this hospital course. 2. Berry Ryan is the patient's designated surrogate medical decision-maker. Document(s) Completed: Following information be entered into the patient's permanent medical record as well as her current medical record and orders via EMR entry: 1. Patient will be full CODE STATUS during this hospital course. 2. Berry Ryan is the patient's designated surrogate medical decision-maker. Time Spent: 6 minutes
[2018-08-15 06:23] LABS: FREE T3 4.15 pg/mL (2.77-5.27); FREE T4 (FREE THYROXINE) 1.14 ng/dL (0.78-2.19)
--- NOTE | 2018-08-15 06:24 | PDOC H&P ---
History of Present Illness Admission Date/PCP: 08/15/2018 04:54 [facility] Patient complains of: Headache History of Present Illness: BILL BRADLEY is a 43 year old female who presented to the emergency room with a one-week history of headaches. She reports a generalized headache more pronounced on the left side than the right, typical of her prior migraine headaches, present for the last week with waxing and waning in intensity from moderate to severe. The headache is been accompanied by slight blurring of her vision in the left eye and intermittent episodes of left arm and left leg numbness for the last 2 days and nausea for the last 24 hours. Again the patient admits prior similar episodes with previous migraines though no prior similar accompanying symptoms. She admits running out of her antihypertensive medications about 2 weeks ago. She denies any additional aggravating or ameliorating factors for her headaches. In the emergency room the patient's symptoms had resolved and she was found to have a normal examination as well as an unremarkable initial evaluation including a CT scan of the head without contrast. Her blood pressure was mildly elevated in the emergency room. Because of the patient's stroke-like symptoms she was admitted to the stroke pro tocol program on [facility]. Past Medical History Cardiac Medical History: Reports: Hypertension Denies: Coronary Artery Disease, Myocardial Infarction, Heart Murmur Pulmonary Medical History: Denies: Asthma, Bronchitis, Chronic Obstructive Pulmonary Disease (COPD), Pneumonia EENT Medical History: Denies: Cataracts, Ears - Hearing aids Neurological Medical History: Reports: Migraine Denies: Hemorrhagic CVA, Ischemic CVA, Multiple Sclerosis, Seizures Endocrine Medical History: Reports: Diabetes Mellitus Type 2 - no insulin, controlling with diet and reduced dose metformin, Obesity Denies: Diabetes Mellitus Type 1, Hyperthyroidism, Hypothyroidism Renal/ Medical History: Reports: Nephrolithiasis, Other - Frequent urinary tract infections Denies: Chronic Kidney Disease Malignancy Medical History: Reports: None GI Medical History: Reports: Gastroesophageal Reflux Disease Denies: Cirrhosis, Hepatitis, Hiatal Hernia Musculoskeltal Medical History: Denies: Arthritis, Gout Skin Medical History: Denies: Eczema, Psoriasis Psychiatric Medical History: Reports: General Anxiety Disorder Denies: Alcohol Dependency, Substance Abuse, Tobacco Dependency Traumatic Medical History: Reports: None Hematology: Denies: Anemia, Sickle Cell Disease, Bleeding Tendencies Infectious Medical History: Reports: None Past Surgical History Past Surgical History: Reports: Appendectomy, Section - X4 Social History Information Source: Patient Lives with: Alone Smoking Status: Never Smoker Frequency of Alcohol Use: Rare Hx Recreational Drug Use: No Drugs: None Hx Prescription Drug Abuse: No - Advance Directive Resuscitation Status: Full Code Surrogate healthcare decision maker:: Berry Ryan Family History Family History: CVA, Hypertension, Malignancy. denies: DM Parental Family History Reviewed: Yes Children Family History Reviewed: No Sibling(s) Family History Reviewed.: Yes Medication/Allergy Home Medications: Metoprolol Succinate [Toprol XL 100 mg Tablet] 1 tab PO DAILY 08/12/13 Metformin HCl 1 tab PO QHS 09/01/16 Metformin HCl [Glucophage] 1 tab PO QAM 09/01/16 Naproxen 500 mg PO BID #20 tablet 09/01/16 Ibuprofen [Motrin 800 mg Tablet] 800 mg PO Q8HP PRN #20 tablet 08/04/17 Allergies/Adverse Reactions: No Known Drug Allergies Allergy (Unknown, Verified 08/14/18 23:53) Review of Systems Constitutional: PRESENT: as per HPI, headache(s). ABSENT: chills, fever(s) Eyes: PRESENT: as per HPI, visual disturbances - Blurring of left eye vision. ABSENT: other - Eye pain Ears: ABSENT: hearing changes, other Nose, Mouth, and Throat: ABSENT: mouth pain, sore throat Cardiovascular: ABSENT: chest pain, palpitations Respiratory: ABSENT: cough, dyspnea Gastrointestinal: ABSENT: abdominal pain, constipation, diarrhea, nausea, vom iting Genitourinary: ABSENT: dysuria, hematuria Musculoskeletal: ABSENT: back pain, joint swelling, muscle weakness Integumentary: ABSENT: pruritus, rash Neurological: PRESENT: as per HPI, numbness, tingling. ABSENT: abnormal gait, abnormal movements, abnormal speech, confusion, convulsions, dizziness, focal weakness, lack of coordination, memory loss, syncope, tremor(s), vertigo, weakness Psychiatric: ABSENT: anxiety, depression Endocrine: ABSENT: cold intolerance, heat intolerance Hematologic/Lymphatic: ABSENT: easy bleeding, easy bruising Physical Exam Vital Signs: Temp Pulse Resp BP Pulse Ox 98.3 F 67 17 145/99 H 100 08/15/18 00:16 08/15/18 00:16 08/15/18 02:01 08/15/18 02:00 08/15/18 02:36 Intake & Output 08/13/18 08/14/18 08/15/18 23:59 23:59 23:59 Weight 114 kg General appearance: PRESENT: no acute distress, cooperative, morbidly obese Head exam: PRESENT: atraumatic, normocephalic Eye exam: PRESENT: conjunctiva pink. ABSENT: conjunctival injection, scleral icterus Ear exam: PRESENT: normal external ear exam. ABSENT: bleeding, drainage Mouth exam: PRESENT: dry mucosa, neck supple Neck exam: ABSENT: JVD, thyromegaly, tracheal deviation Respiratory exam: PRESENT: clear to auscultation marry, symmetrical, unlabored Cardiovascular exam: PRESENT: clicks, gallop, RRR, rubs Pulses: PRESENT: normal radial pulses, normal dorsalis pedis pul Vascular exam: PRESENT: normal capillary refill. ABSENT: pallor GI/Abdominal exam: PRESENT: normal bowel sounds, soft Rectal exam: PRESENT: deferred Extremities exam: ABSENT: joint swelling, pedal edema Musculoskeletal exam: PRESENT: full ROM, normal inspection Neurological exam: PRESENT: alert, oriented to person, oriented to place, oriented to time, oriented to situation, CN II-XII grossly intact. ABSENT: motor sensory deficit Psychiatric exam: PRESENT: appropriate affect, normal mood - [id number] Skin exam: PRESENT: dry, intact, warm. ABSENT: jaundice, rash, urticaria Results Laboratory Results: 08/15/18 01:40 08/15/18 01:40 08/15/18 08/15/18 01:40 01:40 WBC 10.0 RBC 4.62 Hgb 11.4 L Hct 35.6 L MCV 77 L MCH 24.7 L MCHC 32.0 RDW 14.9 H Plt Count 253 Seg Neutrophils % 64.2 Lymphocytes % 27.6 Monocytes % 5.3 Eosinophils % 2.2 Basophils % 0.7 Absolute Neutrophils 6.4 Absolute Lymphocytes 2.8 Absolute Monocytes 0.5 Absolute Eosinophils 0.2 Absolute Basophils 0.1 Sodium 140.3 Potassium 3.6 Chloride 104 Carbon Dioxide 28 Anion Gap 8 BUN 14 Creatinine 0.84 Est GFR ( Amer) > 60 Est GFR (Non-Af Amer) > 60 Glucose 95 Calcium 9.4 Total Bilirubin 0.4 AST 33 ALT 27 Alkaline Phosphatase 70 Total Protein 7.3 Albumin 4.0 Impressions: Head CT 08/15/18 02:21 IMPRESSION: No acute intracranial findings. Assessment and Plan - Diagnosis (1) Bilateral headaches Is this a current diagnosis for this admission?: Yes Plan: Patient's headaches will be treated with Nubain 10 mg IV every 3 hours on an as needed basis. Additionally she will be evaluated in the stroke protocol, her antihypertensive medications will be restarted and she will be placed on a antiplatelet agent per the stroke protocol. (2) Numbness and tingling Is this a current diagnosis for this admission?: Yes Plan: Patient will be evaluated utilizing the stroke protocol with a MRI, carotid Doppler and an echocardiogram. She will also be evaluated by PT, OT and speech therapy as well as the stroke nurse. (3) Hypertension Qualifiers: Hypertension type: essential hypertension Qualified Code(s): I10 - Essential (primary) hypertension Is this a current diagnosis for this admission?: Yes Plan: Patient's usual antihypertensive regiment will be restored and her blood pressure be monitored closely throughout her hospital course. The patient's thyroid profile, lipid profile and her hemoglobin A1c will be checked x1. Daily CBCs, metabolic profiles and magnesium levels will be determined. (4) Diabetes mellitus type 2 in obese Is this a current diagnosis for this admission?: Yes Plan: Patient's diabetes will be treated with a diabetic diet and possible resumption of her usual diabetic therapy after her reduced dose of metformin has been determined. Hemoglobin A1c will be obtained to assess the efficacy of her prior therapy although her medical compliance is somewhat in question. (5) Medical non-compliance Is this a current diagnosis for this admission?: Yes Plan: The issues of noncompliance will be addressed both by myself and by her other (daytime hospitalist) physicians as well as the stroke team. Patient be strongly encouraged to not discontinue antihypertensive medications again in the future without the full approval and direction of her primary care provider. - Time Time Spent with patient: 25-34 minutes Medications reviewed and adjusted accordingly: Yes Anticipated discharge: Home - Inpatient Certification Based on my medical assessment, after consideration of the patient's comorbidities, presenting symptoms, or acuity I expect that the services needed warrant INPATIENT care.: Yes I certify that my determination is in accordance with my understanding of Medicare's requirements for reasonable and necessary INPATIENT services [42 CFR 412.3e].: Yes Medical Necessity: Significant Comorbidiites Make Outpatient Treatment Too Risky, Need Close Monitoring Due to Risk of Patient Decompensation, Need For Continuous Telemetry Monitoring, Need for Neurological Checks
[2018-08-15] MEDS: FONDAPARINUX SODIUM INJ 2.5 MG/0.5 ML DISP.SYRIN SUBCUT SCH (08:58)
--- NOTE | 2018-08-15 09:47 | RADIOLOGY REPORT (SQ) ---
EXAM DESCRIPTION: MRI HEAD WITHOUT COMPLETED DATE/TIME: 08/15/2018 8:38 am REASON FOR STUDY: Left-sided numbness and tingling COMPARISON: 08/15/2018 TECHNIQUE: Multiplanar imaging includes non-contrasted T1, T2, FLAIR, and diffusion with ADC map seq uences. Images stored on PACS. LIMITATIONS: None. FINDINGS: ANATOMY: No anomalies. Normal vascular flow voids. Pituitary fossa normal. CSF SPACES: Normal in size and contour. No hemorrhage. CEREBRUM: Sulci and gyri normal in size and contour. Normal white matter signal on FLAIR imaging. No evidence of hemorrhage, mass, or extraaxial fluid collection. POSTERIOR FOSSA: No signal alteration. No hemorrhage. No edema, masses or mass effect. Internal ross tory canals, cerebello-pontine angles, mastoids normal. DIFFUSION IMAGING: Negative for acute or sub-acute infarction. ORBITS: No masses. Globes normal. PARANASAL SINUSES: Mild mucosal thickening within the ethmoid and right mastoid air cells. No fluid levels. OTHER: No other significant finding. IMPRESSION: 1. No evidence of acute intracranial process. 2. Mild mucosal thickening within the ethmoid and right mastoid air cells. EVIDENCE OF ACUTE STROKE: NO. TECHNICAL DOCUMENTATION: JOB ID: [id number] [employer]- All Rights Reserved Reading location - IP/workstation name: [email or web address]
[2018-08-15] MEDS: ASPIRIN 81 MG TABLET, ENT COATED PO SCH (10:08)
[2018-08-15] MEDS: TRIAMTERENE/HYDROCHLOROTHIAZIDE 37.5-25 MG TABLET PO SCH (10:08)
[2018-08-15] MEDS: FAMOTIDINE 20 MG TABLET PO SCH ×2 (10:08→21:26)
[2018-08-15] MEDS: METOPROLOL SUCCINATE 50 MG TAB.SR.24H PO SCH (10:08)
[2018-08-15] MEDS: CLOPIDOGREL BISULFATE 75 MG TABLET PO SCH (10:08)
--- NOTE | 2018-08-15 10:30 | EKG REPORT ---
SEVERITY:- NORMAL ECG - SINUS RHYTHM : Confirmed by: Callie Monroy MD 15-Aug-2018 10:29:49
--- NOTE | 2018-08-15 18:35 | PDOC PROGRESS REPORT ---
Subjective Progress Note for:: 08/15/18 Subjective:: Patient reports no abnormal sensations at this time Reason For Visit: UNCONTROLLED HYPERTENSION,HEADACHE,LEFT SIDED Physical Exam Vital Signs: Temp Pulse Resp BP Pulse Ox 97.5 F 56 L 18 152/9 H 98 08/15/18 11:59 08/15/18 12:00 08/15/18 12:00 08/15/18 12:00 08/15/18 12:00 Intake & Output 08/14/18 08/15/18 08/16/18 06:59 06:59 06:59 Weight 114 kg 113.6 kg General appearance: PRESENT: no acute distress, cooperative, morbidly obese, well-developed Head exam: PRESENT: atraumatic, normocephalic Respiratory exam: PRESENT: clear to auscultation marry, symmetrical, unlabored. ABSENT: rales, rhonchi, tachypnea, wheezes Cardiovascular exam: PRESENT: RRR, +S1, +S2 GI/Abdominal exam: PRESENT: normal bowel sounds, soft. ABSENT: distended, tenderness Neurological exam: PRESENT: alert, awake, oriented to person, oriented to place, oriented to time, oriented to situation, CN II-XII grossly intact. ABSENT: motor sensory deficit Psychiatric exam: PRESENT: flat affect. ABSENT: agitated, anxious Focused psych exam: ABSENT: delusional, restlessness Results Laboratory Results: 08/15/18 01:40 08/15/18 01:40 08/15/18 08/15/18 08/15/18 01:40 01:40 01:40 WBC 10.0 RBC 4.62 Hgb 11.4 L Hct 35.6 L MCV 77 L MCH 24.7 L MCHC 32.0 RDW 14.9 H Plt Count 253 Seg Neutrophils % 64.2 Lymphocytes % 27.6 Monocytes % 5.3 Eosinophils % 2.2 Basophils % 0.7 Absolute Neutrophils 6.4 Absolute Lymphocytes 2.8 Absolute Monocytes 0.5 Absolute Eosinophils 0.2 Absolute Basophils 0.1 Sodium 140.3 Potassium 3.6 Chloride 104 Carbon Dioxide 28 Anion Gap 8 BUN 14 Creatinine 0.84 Est GFR ( Amer) > 60 Est GFR (Non-Af Amer) > 60 Glucose 95 Calcium 9.4 Total Bilirubin 0.4 AST 33 ALT 27 Alkaline Phosphatase 70 Total Protein 7.3 Albumin 4.0 Free T4 1.14 Free T3 pg/mL 4.15 Impressions: Head MRI 08/15/18 00:00 IMPRESSION: 1. No evidence of acute intracranial process. 2. Mild mucosal thickening within the ethmoid and right mastoid air cells. EVIDENCE OF ACUTE STROKE: NO. Head CT 08/15/18 02:21 IMPRESSION: No acute intracranial findings. Assessment and Plan - Diagnosis (1) Bilateral headaches Is this a current diagnosis for this admission?: Yes Plan: Patient's headaches will be treated with Nubain 10 mg IV every 3 hours on an as needed basis. Additionally she will be evaluated in the stroke protocol, her antihypertensive medications will be restarted and she will be placed on a antiplatelet agent per the stroke protocol. 08/15/2018-patient is resting comfortably now that she is on the third floor. She does not complain of any headache at this time. (2) Numbness and tingling Is this a current diagnosis for this admission?: Yes Plan: Patient will be evaluated utilizing the stroke protocol with a MRI, carotid Doppler and an echocardiogram. She will also be evaluated by PT, OT and speech therapy as well as the stroke nurse. 08/15/2018-the patient has an MRI, carotid Doppler and echocardiogram ordered. PT, OT and speech consults are ordered as well. As there is no prevailing neurologic deficit ongoing neurologic checks by the nursing have been discontinued. (3) Hypertension Qualifiers: Hypertension type: essential hypertension Qualified Code(s): I10 - Essential (primary) hypertension Is this a current diagnosis for this admission?: Yes Plan: Patient's usual antihypertensive regiment will be restored and her blood pressure be monitored closely throughout her hospital course. The patient's thyroid profile, lipid profile and her hemoglobin A1c will be checked x1. Daily CBCs, metabolic profiles and magnesium levels will be determined. 08/15/2018-we will check laboratory studies ordered above. She is back on her metoprolol and triamterene hydrochlorothiazide. Her noncompliance is why her blood pressure is up and hopefully resuming her former medication regimen will correct this. Her daughter in fact takes amlodipine. If the above are not effective consider changing her regimen. Atorvastatin and aspirin therapy have been added as well given her underlying diabetes and risk factors. The hypertension could have caused her symptoms as there is no lacie evidence of a stroke but decreasing cardiac risk as much as possible will have long-term benefits. (4) Diabetes mellitus type 2 in obese Is this a current diagnosis for this admission?: Yes Plan: Patient's diabetes will be treated with a diabetic diet and possible resumption of her usual diabetic therapy after her reduced dose of metformin has been determined. Hemoglobin A1c will be obtained to assess the efficacy of her prior therapy although her medical compliance is somewhat in question. 08/15/2018-will continue the metformin. Will utilize sliding scale as well. (5) Medical non-compliance Is this a current diagnosis for this admission?: Yes Plan: The issues of noncompliance will be addressed both by myself and by her other (daytime hospitalist) physicians as well as the stroke team. Patient be strongly encouraged to not discontinue antihypertensive medications again in the future without the full approval and direction of her primary care provider. 08/15/2018-we will have discharge planning work with the patient and try and figure out why she is noncompliant. (6) Morbid obesity with BMI of 40.0-44.9, adult Is this a current diagnosis for this admission?: Yes Plan: We will try to encourage diet and weight loss as well as adding an exercise regimen. This will likely help with her hypertension and diabetes in the long run. - Time Time Spent with patient: 15-24 minutes Medications reviewed and adjusted accordingly: Yes
[2018-08-15] MEDS ORDERED: ATORVASTATIN CALCIUM 10 MG TABLET PO SCH (22:00)
--- NOTE | 2018-08-15 23:18 | XCELERA REPORT ---
[address] [address] Transthoracic Echocardiogram Report Name: BILL BRADLEY Age: 43 yrs Gender: Female : 1975 Patient Status: Inpatient Patient Location: [address] [place] [address] Study Date: 08/15/2018 05:33 PM Height: 63 in Weight: 251 lb BSA: 2.1 m2 Procedure: A two-dimensional transthoracic echocardiogram with color flow and Doppler was performed. The study was technically limited with all images being suboptimal in quality. Images were not obtained from all of the standard acoustic windows due to the limited scope of the study. Reason For Study: Left-sided numbness and tingling History: Left-sided numbness and tingling / CVA. Ordering Physician: OLVIN MOROCHO Performed By: Brigida Humphreys Interpretation Summary There is no obvious cardiac source of embolus noted on this transthoracic echocardiogram. Follow-up with a [facility] is suggested if cardiac source is still suspected. The left ventricle is normal in size. There is normal left ventricular wall thickness. No True apical 2 chamber views obtained.Hence cannot comment on the apical anterior , the basal anterior, the basal inferior and apical inferior mackenzie.The mid anterior , the mid inferior and the rest of the LV mackenzie contract normally. .Normal LVEF is normal and is greater than 65% in the limited views. Doppler measurements suggest impaired left ventricular relaxation, which is associated with grade I/IV or mild diastolic dysfunction There is no thrombus. The right ventricle is normal in size and function. The right atrium is normal. The left atrial size is normal. There is no evidence of mitral valve prolapse. There is no vegetation seen on the mitral valve. There is no mitral valve stenosis. There is a trace to mild amount of mitral regurgitation There is no aortic valvular vegetation. There is no aortic valve stenosis There is no LVOT obstruction. No aortic regurgitation is present. There is no tricuspid stenosis. There is a trace amount of tricuspid regurgitation Right ventricular systolic pressure is normal. RVSP is 23 to 28 mm of Hg , with RA mean of 5 to 10. There is no pulmonic valvular stenosis. There is no pulmonic valvular regurgitation. The aortic root is normal size. The inferior vena cava appeared normal and decreased > 50% with respiration (RAP 5-10 mmHg) There is no pericardial effusion. There is no obvious cardiac source of embolus noted on this transthoracic echocardiogram. Follow-up with a [facility] is suggested if cardiac source is still suspected MMode/2D Measurements & Calculations RVDd: 2.6 cm LVIDd: 5.5 cm FS: 42.3 % Ao root diam: 2.9 cm IVSd: 0.76 cm LVIDs: 3.2 cm EDV(Teich): Ao root area: LVPWd: 0.89 cm 149.0 ml 6.4 cm2 ESV(Teich): 40.7 mlLA dimension: 3.9 cm EF(Teich): 72.7 % LVLd ap4: 6.3 cm SV(MOD-sp4): EDV(MOD-sp4): 57.0 ml 78.0 ml LVLs ap4: 4.7 cm ESV(MOD-sp4): 21.0 ml EF(MOD-sp4): 73.1 % Doppler Measurements & Calculations MV E max anali: MV P1/2t max anali: Ao V2 max: LV V1 max P.4 cm/sec 123.5 cm/sec 134.4 cm/sec 4.8 mmHg MV A max anali: MV P1/2t: 42.8 msec Ao max PG: LV V1 max: 88.8 cm/sec MVA(P1/2t): 5.1 cm2 7.2 mmHg 109.1 cm/sec MV E/A: 0.93 MV dec slope: 846.2 cm/sec2 MV dec time: 0.21 sec PA V2 max: PI end-d anali: TR max anali: MV P1/2t-pr_phl: 78.7 cm/sec 154.7 cm/sec 213.1 cm/sec 42.8 msec PA max PG: TR max P.5 mmHg 18.2 mmHg Left Ventricle The left ventricle is normal in size. There is normal left ventricular wall thickness. No True apical 2 chamber views obtained.Hence cannot comment on the apical anterior , the basal anterior, the basal inferior and apical inferior mackenzie.The mid anterior , the mid inferior and the rest of the LV mackenzie contract normally. .Normal LVEF is normal and is greater than 65% in the limited views. Doppler measurements suggest impaired left ventricular relaxation, which is associated with grade I/IV or mild diastolic dysfunction. There is no thrombus. No a good study to assess for ASD,VSD,or PFO. Right Ventricle The right ventricle is normal in size and function. Atria The right atrium is normal. The left atrial size is normal. Mitral Valve There is no evidence of mitral valve prolapse. There is no vegetation seen on the mitral valve. There is no mitral valve stenosis. There is a trace to mild amount of mitral regurgitation. Aortic Valve There is no aortic valvular vegetation. There is no aortic valve stenosis. There is no LVOT obstruction. No aortic regurgitation is present. Tricuspid Valve There is no tricuspid stenosis. There is a trace amount of tricuspid regurgitation. Right ventricular systolic pressure is normal. RVSP is 23 to 28 mm of Hg , with RA mean of 5 to 10. Pulmonic Valve There is no pulmonic valvular stenosis. There is no pulmonic valvular regurgitation. Great Vessels The aortic root is normal size. The inferior vena cava appeared normal and decreased > 50% with respiration (RAP 5-10 mmHg). Effusions There is no pericardial effusion. : OLVIN MOROCHO > Callie Monroy
--- NOTE | 2018-08-16 01:42 | RADIOLOGY REPORT (SQ) ---
EXAM: Ultrasound carotid Doppler bilateral CLINICAL INDICATION: 43-year-old female with left-sided numbness and tingling COMPARISON: None. FINDINGS: Duplex examination of the extracranial carotid artery systems was performed bilaterally. There is no significant calcified plaque along the carotid bulbs. There is normal velocity and antegrade flow in the right vertebral artery. Left vertebral artery is not well visualized on this examination. Peak systolic (PS) and end diastolic (ED) velocities are as follows: RIGHT SIDE Proximal CCA: PS 86 cm/s. ED 17 cm/s. Distal CCA: PS 83 cm/s. ED 27 cm/s. Proximal ICA: PS 52 cm/s. ED 20 cm/s. Distal ICA: PS 58 cm/s. ED 18 cm/s. ECA: 73 cm/s. ICA/CCA PS ratio: 0.7 LEFT SIDE Proximal CCA: PS 72 cm/s. ED 21 cm/s. Distal CCA: PS 76 cm/s. ED 24 cm/s. Proximal ICA: PS 44 cm/s. ED 15 cm/s. Distal ICA: PS 50 cm/s. ED 19 cm/s. ECA: 85 cm/s. ICA/CCA PS ratio: 0.7 IMPRESSION: 1. No evidence for hemodynamically significant stenosis in the extracranial carotid arteries bilaterally. 2. Please note that the technologist indicated that the study was difficult due to color signal dropout and patient snoring during the examination.
[2018-08-16 05:28] LABS: HEMATOCRIT 36.2 % (36.0-47.0); HEMOGLOBIN 11.9 g/dL (12.0-15.5); MEAN CORPUSCULAR HEMOGLOBIN 25.3 pg (27.0-33.4); MEAN CORPUSCULAR HGB CONC 32.8 g/dL (32.0-36.0); MEAN CORPUSCULAR VOLUME 77 fl (80-97); PLATELET COUNT 244 10^3/uL (150-450); RED BLOOD COUNT 4.69 10^6/uL (3.72-5.28); RED CELL DISTRIBUTION WIDTH 14.9 % (11.5-14.0); WHITE BLOOD COUNT 7.4 10^3/uL (4.0-10.5)
[2018-08-16 05:50] LABS: ANION GAP 9 (5-19); BLOOD UREA NITROGEN 18 mg/dL (7-20); CALCIUM 9.2 mg/dL (8.4-10.2); CARBON DIOXIDE 27 mmol/L (22-30); CHLORIDE 103 mmol/L (98-107); CHOLESTEROL 195.21 mg/dL (0-200); GLUCOSE 116 mg/dL (75-110); POTASSIUM 3.6 mmol/L (3.6-5.0); TRIGLYCERIDES 150 mg/dL (<150)
[2018-08-16 06:02] LABS: DIRECT LDL 132 mg/dL (<100)
[2018-08-16] MEDS ORDERED: METFORMIN HCL 500 MG TABLET PO SCH (08:00)
[2018-08-16] MEDS: FAMOTIDINE 20 MG TABLET PO SCH (09:17)
[2018-08-16] MEDS: CLOPIDOGREL BISULFATE 75 MG TABLET PO SCH (09:17)
[2018-08-16] MEDS: TRIAMTERENE/HYDROCHLOROTHIAZIDE 37.5-25 MG TABLET PO SCH (09:17)
[2018-08-16] MEDS: ASPIRIN 81 MG TABLET, ENT COATED PO SCH (09:17)
[2018-08-16] MEDS: FONDAPARINUX SODIUM INJ 2.5 MG/0.5 ML DISP.SYRIN SUBCUT SCH (09:17)
[2018-08-16] MEDS: METOPROLOL SUCCINATE 50 MG TAB.SR.24H PO SCH (09:18)
[2018-08-16] MEDS ORDERED: (PENDING PHARMACY ID) (Triamterene/Hydrochlorothiazid [Triamterene-Hctz 37.5-25 Mg Cp] 1 E PO SCH (10:00)
[2018-08-16] MEDS ORDERED: FERROUS SULFATE 325 MG TABLET PO SCH (10:00)
[2018-08-16 14:07] VITALS: BP 142/85
--- NOTE | 2018-08-16 17:55 | PDOC DISCHARGE SUMMARY ---
General - Admit/Disc Date/PCP Admission Date/Primary Care Provider: 08/15/18 05:01 Discharge Date: 08/16/18 - Discharge Diagnosis (1) Bilateral headaches Is this a current diagnosis for this admission?: Yes Summary: The patient's bilateral headaches were most likely from her elevated blood pressure. She does report that the headaches are much better but still present at a low-grade. I explained that she should use Tylenol for headaches and as her blood pressure improved her headaches would improve as well. She was comfortable with this explanation. (2) Numbness and tingling Is this a current diagnosis for this admission?: Yes Summary: The paresthesias were likely due to the significant hypertension. As her blood pressures improved all of the paresthesias resolved. (3) Hypertension Is this a current diagnosis for this admission?: Yes Summary: The patient had markedly elevated blood pressures on admission. She ran out of medications and was unable to obtain her refills. During her hospitalization her blood pressures were noticeably improved. We will discharge on metoprolol succinate 50 mg daily and triamterene hydrochlorothiazide for blood pressure. This may need to be adjusted at her follow-up appointment at [facility]. (4) Diabetes mellitus type 2 in obese Is this a current diagnosis for this admission?: Yes Summary: The patient exhibits good glucose control. She will continue her metformin 500 mg twice daily. (5) Medical non-compliance Is this a current diagnosis for this admission?: Yes Summary: We did stress the importance of follow-up. The [facility] does accept patients without insurance. The disability representative from the hospital did review the patient for possible Medicaid consideration. (6) Morbid obesity with BMI of 40.0-44.9, adult Is this a current diagnosis for this admission?: Yes Summary: Her morbid obesity creates increased risk especially with her hypertension and diabetes. She would benefit from an aggressive diet regimen as well as initiation of an exercise program. I will defer to her outpatient physician for ongoing management. - Additional Information Resuscitation Status: Full Code Discharge Diet: Cardiac, Diabetic Discharge Activity: Activity As Tolerated Prescriptions: Aspirin [Ecotrin 81 mg EC Tablet] 81 mg PO DAILY 30 Days #30 tabec Atorvastatin Calcium [Lipitor 20 mg Tablet] 20 mg PO QHS #30 tablet Clopidogrel Bisulfate [Plavix 75 mg Tablet] 75 mg PO DAILY #30 tablet Ferrous Sulfate [Iron] 325 mg PO DAILY 30 Days #30 tablet Metformin HCl [Metformin ER Osmotic] 500 mg PO BID 60 Days #60 tab.er.24 Metoprolol Succinate [Toprol Xl 50 mg Tab.sr] 50 mg PO DAILY #30 tab.sr.24h Transition To Wellness [Transition to Wellness Med Delivery (M-F ONLY)] 1 each ASDIR #1 each Triamterene/Hydrochlorothiazid [Triamterene-Hctz 37.5-25 mg Cp] 1 each PO DAILY 30 Days #30 capsule Home Medications: Metformin HCl [Glucophage 500 mg Tablet] 500 mg PO BIDACBS 08/15/18 Aspirin [Ecotrin 81 mg EC Tablet] 81 mg PO DAILY 30 Days #30 tabec 08/16/18 Atorvastatin Calcium [Lipitor 20 mg Tablet] 20 mg PO QHS #30 tablet 08/16/18 Clopidogrel Bisulfate [Plavix 75 mg Tablet] 75 mg PO DAILY #30 tablet 08/16/18 Ferrous Sulfate [Iron] 325 mg PO DAILY 30 Days #30 tablet 08/16/18 Metformin HCl [Metformin ER Osmotic] 500 mg PO BID 60 Days #60 tab.er.24 08/16/18 Metoprolol Succinate [Toprol Xl 50 mg Tab.sr] 50 mg PO DAILY #30 tab.sr.24h 08/16/18 Transition To Wellness [Transition to Wellness Med Delivery (M-F ONLY)] 1 each ASDIR #1 each 08/16/18 Triamterene/Hydrochlorothiazid [Triamterene-Hctz 37.5-25 mg Cp] 1 each PO DAILY 30 Days #30 capsule 08/16/18 History of Present Illness Patient complains of: Bilateral headache History of Present Illness: BILL BRADLEY is a 43 year old female with morbid obesity and history of hypertension and diabetes mellitus. She ran out of her blood pressure medicines. She reports that for the week prior to presenting to the emergency department she was having headaches. She reports that there were bilateral but more pronounced on the left. There were similar to her prior migraine headach es. They would wax and wane but never completely resolved. Occasionally she will have blurred vision and reports intermittent episodes of left arm and left leg numbness especially over the last 2 days. In addition she reports nausea for the last 24 hours. Upon evaluation the CT scan of the head was negative. Her blood pressure was elevated. Because of the possibility of stroke the patient was referred to the hospitalist service for admission. Hospital Course Hospital Course: The patient's blood pressure slowly improved. Her headaches also slowly improved. See details above. We did refer the patient to the transition to wellness program and I electronically sent her prescriptions to [facility]. They will also follow-up for the first week to ensure compliance. Physical Exam Vital Signs: Temp Pulse Resp BP Pulse Ox 97.6 F 59 L 16 150/86 H 98 08/16/18 06:58 08/16/18 07:00 08/16/18 06:58 08/16/18 06:58 08/16/18 06:58 Intake & Output 08/15/18 08/16/18 08/17/18 06:59 06:59 06:59 Weight 114 kg 114.2 kg General appearance: PRESENT: no acute distress, cooperative, morbidly obese, well-developed Head exam: PRESENT: atraumatic, normocephalic Eye exam: PRESENT: conjunctiva pink. ABSENT: scleral icterus Ear exam: PRESENT: normal external ear exam Mouth exam: PRESENT: dry mucosa, tongue midline Respiratory exam: PRESENT: clear to auscultation marry, symmetrical, unlabored. ABSENT: accessory muscle use, rales, rhonchi, tachypnea, wheezes Cardiovascular exam: PRESENT: RRR, +S1, +S2 GI/Abdominal exam: PRESENT: normal bowel sounds, soft. ABSENT: distended, tenderness Rectal exam: PRESENT: deferred Gentrourinary exam: ABSENT: indwelling catheter Extremities exam: ABSENT: pedal edema Neurological exam: PRESENT: alert, awake, oriented to person, oriented to place, oriented to time, oriented to situation, CN II-XII grossly intact Psychiatric exam: PRESENT: appropriate affect, normal mood. ABSENT: agitated, anxious Focused psych exam: ABSENT: delusional, restlessness Results Laboratory Results: 08/16/18 04:48 08/16/18 04:48 08/16/18 08/16/18 08/16/18 04:48 04:48 04:48 WBC 7.4 RBC 4.69 Hgb 11.9 L Hct 36.2 MCV 77 L MCH 25.3 L MCHC 32.8 RDW 14.9 H Plt Count 244 Sodium 138.6 Potassium 3.6 Chloride 103 Carbon Dioxide 27 Anion Gap 9 BUN 18 Creatinine 0.75 Est GFR ( Amer) > 60 Est GFR (Non-Af Amer) > 60 Glucose 116 H Calcium 9.2 Triglycerides 150 Cholesterol 195.21 LDL Cholesterol Direct 132 H VLDL Cholesterol 30.0 HDL Cholesterol 36 L TSH 1.20 Impressions: Head MRI 08/15/18 00:00 IMPRESSION: 1. No evidence of acute intracranial process. 2. Mild mucosal thickening within the ethmoid and right mastoid air cells. EVIDENCE OF ACUTE STROKE: NO. Head CT 08/15/18 02:21 IMPRESSION: No acute intracranial findings. Carotid Doppler Study 08/15/18 05:24 IMPRESSION: 1. No evidence for hemodynamically significant stenosis in the extracranial carotid arteries bilaterally. 2. Please note that the technologist indicated that the study was difficult due to color signal dropout and patient snoring during the examination. Qualifiers - * PATIENT BEING DISCHARGED WITH ANY OF THE FOLLOWING DIAGNOSIS: No Acute Heart Failure - Is this a Heart Failure Patient?: No Plan Discharge Plan: As above Time Spent: Greater than 30 Minutes
== END 2018-08-16 16:30 | disposition home or self-care (01) | DRG 305 ==
LOC: ER 23:48 → EH 08-15 05:01 → 3W 08-15 11:48
PROVIDERS: ADMIT Emergency Medicine; ATTEND Emergency Medicine
DX: I10 Essential (primary) hypertension (principal); Z68.41 Body mass index [BMI] 40.0-44.9, adult; R51 Headache; R20.2 Paresthesia of skin; E11.8 Type 2 diabetes mellitus with unspecified complications; K21.9 Gastro-esophageal reflux disease without esophagitis; E66.01 Morbid (severe) obesity due to excess calories; F41.1 Generalized anxiety disorder; Z91.14 Patient's other noncompliance with medication regimen; Z79.84 Long term (current) use of oral hypoglycemic drugs; Z79.82 Long term (current) use of aspirin; Z79.899 Other long term (current) drug therapy
CPT/HCPCS: 36415; 70450; 70551; 80048; 80053; 80061; 82962; 83036; 84439; 84443; 84481; 85025; 85027; 85610; 93005; 93010; 93306; 93880; 99285; J1652; J3490